=== PATIENT | female | born 1955 | race Caucasian/White ===

== ENCOUNTER 2016-12-21 13:50 | Emergency (ER) | payer BC, MEDICAID ==
[~2016-12-21] VITALS: Ht 162.6 cm; Wt 95.3 kg
[2016-12-21] MEDS ORDERED: Ketorolac 60mg Inj IM ONE (14:00)
--- NOTE | 2016-12-21 14:00 | Emergency Room Report ---
History of Present Illness General Chief Complaint: Lower Extremity Injury Source: Patient Present Illness HPI Patient is a 61-year-old female who presented after having increased right lower extremity pain. The patient gradual onset of symptoms. She reported having some difficulty with movement to the right hip. Patient reported having prior history of a process and osteoarthritis of the right hip. She denies any recent trauma. She reported having increased difficulty with movement. The patient was brought in by EMS. The patient reports being a smoker. She reports previously taking narcotic pain medication Allergies: Coded Allergies: No Known Allergies (Unverified , 12/21/16) Patient History Past Medical History: see triage record Last Menstrual Period: na Now: No Reviewed Nursing Documentation: PMH: Agreed, PSxH: Agreed Nursing Documentation-PMH Past Medical History: No History, Except For Hx Cardiac Problems: Yes - angina Hx Hypertension: Yes Review of Systems All Other Systems: negative except mentioned in HPI Physical Exam Vital Signs Date Time Temp Pulse Resp B/P Pulse Ox O2 Delivery O2 Flow Rate FiO2 12/21/16 13:42 98.2 69 18 152/84 98 Room Air General Appearance: well appearing, no apparent distress, alert, GCS 15 Head: normocephalic, atraumatic ENT: hearing grossly normal, normal voice Neck: full range of motion, supple Respiratory: no respiratory distress, speaking full sentences Gastrointestinal: normal inspection, soft Musculoskeletal: no calf tenderness, decreased range of mation, other - slight leg length discrepancy, no rotations Neurologic: normal gait Psychiatric: mood/affect normal Skin: no rash Medical Decision Making Diagnostic Impression: Primary Impression: Hip arthritis ER Course Patient presented for leg pain. Differential diagnosis included but was not limited to fracture, contusion, renal stone, vascular insufficiency, aortic aneurysm, cellulitis. X-ray imaging of the pelvis was ordered to evaluate possible fracture. The patient was given Toradol intramuscularly.Pelvis x-ray per radiology showed degenerative changes without evident fractures. The patient was given prescription for muscle relaxants. She's advised to followup with her primary care physician for further management of arthritis and orthopedic referral Last Vital Signs Date Time Temp Pulse Resp B/P Pulse Ox O2 Delivery O2 Flow Rate FiO2 12/21/16 13:42 98.2 69 18 152/84 98 Room Air Status: improved Disposition: HOME, SELF-CARE Condition: Stable Scripts Cyclobenzaprine Hcl* (FLEXERIL*) 10 Mg Tablet 10 MG ORAL THREE TIMES A DAY, #30 TAB Prov: Salvador Rush 12/21/16 Salvador Rush Dec 21, 2016 14:00
[2016-12-21] MEDS ORDERED: CYCLOBENZAPRINE10 MG ORAL (14:41)
[2016-12-21 15:04] VITALS: BP 152/84
--- NOTE | 2016-12-21 16:34 | Diagnostic Imaging Report ---
Indication: pain Findings: Single AP view of the pelvis was performed. The bones are osteopenic. There is moderate narrowing and osteophyte formation involving the right hip joint. Osteophytes and hypertrophic changes of the lower lumbar facets noted. Impression: Moderate osteoarthritis of the right hip Lower lumbar facet arthropathy
== END 2016-12-21 15:04 | disposition home or self-care (01) ==
LOC: EDBD 13:50 → EMR 15:00
DX: M16.11 Unilateral primary osteoarthritis, right hip (principal); M85.88 Other specified disorders of bone density and structure, other site; F17.200 Nicotine dependence, unspecified, uncomplicated; I10 Essential (primary) hypertension
CPT/HCPCS: 72170; 96372; 99283

== ENCOUNTER 2017-04-26 02:35 | Emergency (ER) | payer BC, MEDICAID ==
[~2017-04-26] VITALS: Ht 162.6 cm; Wt 93.0 kg
[~2017-04-26 02:35] MED LIST: CYCLOBENZAPRINE10 MG ORAL; GABAPENTIN100 MG ORAL; IBUPROFEN600 MG ORAL; LISINOPRIL2.5 MG ORAL; PAXIL10 MG ORAL
[2017-04-26 02:36] VITALS: BP 134/69
[2017-04-26] MEDS ORDERED: Norco 10mg/325mg tab ORAL ONE (02:45)
[2017-04-26] MEDS ORDERED: Ketorolac 60mg Inj IM ONE (02:45)
--- NOTE | 2017-04-26 02:50 | Emergency Room Report ---
History of Present Illness General Chief Complaint: Pain Source: Patient, EMS Present Illness HPI Patient presents with complaints of initially right knee pain however also complains of right hip pain Patient reports that she hit the corner of her bed and fell forward onto her knee causing pain to the knee Denies any lapse of consciousness denies any back pain Denies any chest pain or shortness of breath patient's pain is 7/10 localized to the knee and the hip This happened just prior to arrival Allergies: Coded Allergies: No Known Allergies (Unverified , 12/21/16) Patient History Past Medical History: see triage record Pertinent Family History: none Reviewed Nursing Documentation: PMH: Agreed, PSxH: Agreed Nursing Documentation-PMH Past Medical History: No History, Except For Hx Cardiac Problems: Yes Hx Hypertension: Yes History Of Psychiatric Problem: Yes - anxiety Review of Systems All Other Systems: negative except mentioned in HPI Physical Exam Vital Signs Date Time Temp Pulse Resp B/P (MAP) Pulse Ox O2 Delivery O2 Flow Rate FiO2 04/26/17 02:29 97.9 82 20 140/67 99 Room Air Sp02 EP Interpretation: reviewed, normal General Appearance: mild distress - Patient appears in pain Head: normocephalic, atraumatic Eyes: bilateral eye PERRL, bilateral eye EOMI ENT: other - poor dentition Neck: full range of motion, supple Respiratory: chest non-tender, lungs clear Cardiovascular #1: regular rate, rhythm, no edema Gastrointestinal: non tender, soft Genitourinary: no CVA tenderness Musculoskeletal: other - Patient has pain with any touch or movement of the right leg, including the knee and the hip there is no obvious edema or ecchymosis Neurologic: alert, oriented x3, responsive Skin: normal color, no rash Lymphatic: no adenopathy Medical Decision Making Diagnostic Impression: Primary Impression: Contusion, knee ER Course Given the patient's history and presentation Imaging study was obtained patient has done significantly better with pain medication Why looking for the patient's a phone in her bag The nurse found a glass pipe Otherwise patient continued to rest well Emergency did not show any acute pathology And the patient stable for close outpatient followup Patient provided address and phone number for residing facility Other X-Ray Diagnostic Results Other X-Ray Diagnostic Results #1: X-Ray ordered: pelvic # of Views/Limited Vs Complete: 1 View Indication: Pain EP Interpretation: Yes Interpretation: no dislocation, no soft tissue swelling, no fractures Impression: No acute disease - Significant arthritic changes in the right hip, similar to previous Electronically Signed by: Vikash Kent DO Other X-Ray Diagnostic Results #2: X-Ray ordered: right knee # of Views/Limited Vs Complete: 3 View Indication: Pain EP Interpretation: Yes Interpretation: no dislocation, no soft tissue swelling, no fractures Impression: No acute disease Electronically Signed by: Vikash Kent DO Last Vital Signs Date Time Temp Pulse Resp B/P (MAP) Pulse Ox O2 Delivery O2 Flow Rate FiO2 04/26/17 02:36 97.9 70 19 134/69 100 Room Air Status: improved Disposition: HOME, SELF-CARE Condition: Improved Additional Instructions: Patient is provided with the discharge instructions notified to follow up with primary doctor in the next 2-3 days otherwise return to the er with any worsening symptoms. Please note that this report is being documented using [employer] technology. This can lead to erroneous entry secondary to incorrect interpretation by the dictating instrument. VIKASH KENT D.O. Apr 26, 2017 02:49
[2017-04-26] MEDS ORDERED: LORazepam 1mg tab ORAL ONE (03:15)
[2017-04-26 06:22] VITALS: BP 102/68
[2017-04-26 06:24] VITALS: BP 102/68
[2017-04-26] MEDS ORDERED: UNOBMED (07:24)
--- NOTE | 2017-04-26 08:55 | Diagnostic Imaging Report ---
Indication: PAIN Technique: 3 views of the right knee Comparison: None Findings: Positioning is suboptimal. Per technologist, patient was difficult to position appropriately. No acute fractures. No dislocations. Joint spaces are preserved. No gross suprapatellar effusion. Impression:No acute bony trauma
--- NOTE | 2017-04-26 10:52 | Diagnostic Imaging Report ---
Indication: PAIN Technique: One view of the pelvis Comparison: 12/11/2016 Findings: Exam is limited due to patient body habitus. Again demonstrated are degenerative changes of the right hip. No gross acute fractures. No dislocations. Left hip joint space is preserved. A surgical clip is seen in the pelvis Impression: No acute bony trauma Right hip degenerative change, stable since 12/21/2016
== END 2017-04-26 06:24 | disposition home or self-care (01) ==
LOC: EDBD 02:35 → EMR 03:00
DX: S80.00XA Contusion of unspecified knee, initial encounter (principal); W22.03XA Walked into furniture, initial encounter; Y92.003 Bedroom of unspecified non-institutional (private) residence as the place of occurrence of the external cause; M25.561 Pain in right knee; M25.551 Pain in right hip; I10 Essential (primary) hypertension; F41.9 Anxiety disorder, unspecified
CPT/HCPCS: 72170; 96372; 99283

== ENCOUNTER 2017-04-26 07:21 | Emergency (ER) | payer MEDICAID ==
[~2017-04-26] VITALS: Ht 172.7 cm; Wt 90.7 kg
[2017-04-26] MEDS ORDERED: UNOBMED (07:24)
[2017-04-26 07:25] VITALS: BP 105/62
--- NOTE | 2017-04-26 07:26 | Emergency Room Report ---
History of Present Illness General Chief Complaint: General Complaint Source: Patient, Medical Record Present Illness HPI The patient is 62-year-old female recently discharged from the hospital after ER visit. Patient was noted to have been sent from [facility]. Patient was returned to the hospital because there was no one available to open the door to the facility. Patient had no new complaints. Allergies: Coded Allergies: No Known Allergies (Unverified , 12/21/16) Patient History Past Medical History: see triage record Reviewed Nursing Documentation: PMH: Agreed, PSxH: Agreed Nursing Documentation-PMH Hx Cardiac Problems: Yes - Pt will not clarify. Hx Hypertension: Yes History Of Psychiatric Problem: Yes - Substance abuse Review of Systems All Other Systems: negative except mentioned in HPI Physical Exam Vital Signs Date Time Temp Pulse Resp B/P (MAP) Pulse Ox O2 Delivery O2 Flow Rate FiO2 04/26/17 07:15 97.5 82 16 105/62 98 General Appearance: well appearing, no apparent distress, alert Head: normocephalic, atraumatic ENT: hearing grossly normal, normal voice Neck: full range of motion, supple Respiratory: no respiratory distress, speaking full sentences Gastrointestinal: non tender, soft Musculoskeletal: no calf tenderness Neurologic: alert, taper printed circuit layout III-XII nml as tested, normal gait Psychiatric: mood/affect normal Skin: no rash Medical Decision Making Diagnostic Impression: Primary Impression: Hip arthritis ER Course Patient presented for extremity pain. Differential diagnoses include was no to fracture, dislocation, sprain among others. Patient's benign exam and does not appear to require any further imaging or laboratory testing at this time. Patient was noted be able to move the extremity without assistance. Last Vital Signs Date Time Temp Pulse Resp B/P (MAP) Pulse Ox O2 Delivery O2 Flow Rate FiO2 04/26/17 07:15 97.5 82 16 105/62 98 Status: improved Disposition: HOME, SELF-CARE Condition: Stable Salvador Rush Apr 26, 2017 07:26
[2017-04-26 10:38] VITALS: BP 122/74
[2017-04-26 13:07] VITALS: BP 123/82
[2017-04-26 13:14] VITALS: BP 123/82
== END 2017-04-26 13:07 | disposition home or self-care (01) ==
LOC: EDBD 07:21 → EMR 08:00
DX: M16.11 Unilateral primary osteoarthritis, right hip (principal); I10 Essential (primary) hypertension
CPT/HCPCS: 99282